=== PATIENT | male | born 1985 | race Caucasian/White ===

== ENCOUNTER 2020-05-07 11:20 | Emergency (ER) | payer BC, OTHER ==
[2020-05-08 12:28] LABS: SARS-CoV-2 MS2 Positive; SARS-CoV-2 N Gene Negative; SARS-CoV-2 S Gene Negative; SARS-CoV-2 by NAA Not Detected (NotDetected); SARS-CoV-2 orf1ab Negative
== END 2020-05-07 12:15 | disposition home or self-care (01) ==
LOC: MADERS 11:20
DX: Z20.828 Contact with and (suspected) exposure to other viral communicable diseases (principal); F90.9 Attention-deficit hyperactivity disorder, unspecified type; F17.210 Nicotine dependence, cigarettes, uncomplicated
CPT/HCPCS: 87635; 99283; U0003

== ENCOUNTER 2020-07-16 10:18 | Emergency (ER) | payer BC, OTHER ==
[2020-07-16] MEDS ORDERED: Sodium Chloride 0.9% 1,000 ML ONE (10:48)
[2020-07-16] MEDS ORDERED: Ondansetron PF 4 MG/2 ML Vial ONE (10:48)
[2020-07-16] MEDS ORDERED: Mag-Al Plus 1200 MG/1200 MG/120 MG/30 ML UDCUP ONE (10:49)
[2020-07-16] MEDS ORDERED: Lidocaine Viscous Sol 2% 15 ml UD Cup ONE (10:49)
[2020-07-16 11:10] LABS: #Basophils 0.1 thou/uL (0.0-0.2); #Eosinphils 0.1 thou/uL (0.0-0.7); #Lymphocytes 1.7 thou/uL (1.20-3.40); #Monocytes 0.4 thou/uL (0.11-0.59); #Neutrophils 6.2 thou/uL (1.40-6.50); %Basophils 0.8 % (0.0-1.0); %Eosinophils 1.5 % (0.0-10.0); %Monocytes 4.9 % (0.0-10.0); %Neutrophils 72.9 % (42.0-75.0); Hemoglobin 14.8 g/dL (14.0-18.0); Mean Corpuscular HGB CONC 32.2 g/dL (32.0-36.0); Mean Corpuscular Volume 86.8 fL (78.0-98.0); Mean Platelet Volume 6.4 fL (7.4-10.4); Platelet Count 312 thou/uL (130-400); RBC Distribution Width 11.5 % (11.5-14.5); Red Blood Cell (RBC) Count 5.29 mill/uL (4.70-6.10); White Blood Cell (WBC) Count 8.5 thou/uL (4.8-10.8)
[2020-07-16 11:25] LABS: ALT (SGPT) 21 U/L (8-55); AST (SGOT) 13 U/L (5-34); Albumin 4.3 g/dL (3.5-5.0); Alkaline Phosphatase 58 U/L (40-110); Anion Gap 15 mmol/L (10-20); BUN (Urea Nitrogen) 11 mg/dL (8.9-20.6); Bilirubin, Total 0.8 mg/dL (0.2-1.2); Calc. Creatinine Clearance 0 mL/min (70-130); Calcium 9.1 mg/dL (7.8-10.44); Carbon Dioxide 26 mmol/L (22-29); Chloride 104 mmol/L (98-107); Estimated GFR-MDRD 81; Glucose 108 mg/dL (70-105); Potassium 3.8 mmol/L (3.5-5.1); Protein, Total 7.3 g/dL (6.0-8.3); Sodium 141 mmol/L (136-145)
--- NOTE | 2020-07-16 12:35 | CT ---
CT ABDOMEN AND PELVIS WITH IV CONTRAST: Date: 07/16/2020 HISTORY: 35-year-old male with left lower quadrant pain and blood in the stool. COMPARISON: 08/02/2014. FINDINGS: The lung bases are clear. The liver, spleen, pancreas, adrenal glands, and kidneys are normal. The gallbladder is contracted. N o free air, free fluid, or lymphadenopathy seen in the abdomen or pelvis. The small bowel loops are not abnormally dilated. A normal appearing appendix is present. There is mi ld colonic diverticulosis without pericolonic inflammatory changes to suggest diverticulitis. No abno rmally loculated fluid collection is seen to suggest abscess formation. The urinary bladder is well d istended and normal. Osseous structures are grossly unremarkable. IMPRESSION: No evidence of acute process. POS: [facility]
[2020-07-16] MEDS ORDERED: Iopamidol 370 76% 100 ML VIAL ONE (12:51)
== END 2020-07-16 13:08 | disposition home or self-care (01) ==
LOC: MADERS 10:18
DX: K92.2 Gastrointestinal hemorrhage, unspecified (principal); F17.210 Nicotine dependence, cigarettes, uncomplicated
CPT/HCPCS: 74177; 80053; 85025; 96361; 96374; 99406; J2405; J7050; Q9967

== ENCOUNTER 2021-11-11 11:55 | Emergency (ER) | payer BC ==
[~2021-11-11 11:55] MED LIST: Sodium Chloride 0.9% 1,000 ML BAG ONE
[2021-11-11] MEDS ORDERED: Iopamidol 370 76% 100 ML VIAL ONE (12:22)
[2021-11-11] MEDS ORDERED: Ketorolac Tromethamine 30 MG/ML VIAL ONE (12:38)
[2021-11-11] MEDS ORDERED: Sodium Chloride 0.9% 1,000 ML ONE (12:38)
[2021-11-11] MEDS ORDERED: Ondansetron PF 4 MG/2 ML Vial ONE (12:38)
[2021-11-11 12:54] LABS: #Eosinphils 0.4 thou/uL (0.0-0.7); #Lymphocytes 0.6 thou/uL (1.20-3.40); #Monocytes 0.5 thou/uL (0.11-0.59); #Neutrophils 11.6 thou/uL (1.40-6.50); %Basophils 0.3 % (0.0-1.0); %Eosinophils 2.9 % (0.0-10.0); %Lymphocytes 4.3 % (21.0-51.0); %Monocytes 3.9 % (0.0-10.0); %Neutrophils 88.6 % (42.0-75.0); Mean Corpuscular HGB CONC 32.4 g/dL (32.0-36.0); Mean Corpuscular Hemoglobin 28.5 pg (27.0-31.0); Mean Corpuscular Volume 88.1 fL (78.0-98.0); Platelet Count 309 thou/uL (130-400); RBC Distribution Width 11.8 % (11.5-14.5); Red Blood Cell (RBC) Count 5.28 mill/uL (4.70-6.10); White Blood Cell (WBC) Count 13.1 thou/uL (4.8-10.8)
[2021-11-11 13:07] LABS: ALT (SGPT) 33 U/L (8-55); AST (SGOT) 25 U/L (5-34); Albumin 4.1 g/dL (3.5-5.0); Alkaline Phosphatase 50 U/L (40-110); Anion Gap 12 mmol/L (10-20); BUN (Urea Nitrogen) 13 mg/dL (8.9-20.6); Bilirubin, Total 1.4 mg/dL (0.2-1.2); Calc. Creatinine Clearance 0 mL/min (70-130); Calcium 8.9 mg/dL (7.8-10.44); Carbon Dioxide 27 mmol/L (22-29); Chloride 105 mmol/L (98-107); Globulin 3.1 g/dL (2.4-3.5); Glucose 108 mg/dL (70-105); Lipase 19 U/L (8-78); Magnesium 1.7 mg/dL (1.6-2.6); Potassium 3.8 mmol/L (3.5-5.1); Protein, Total 7.2 g/dL (6.0-8.3); Sodium 140 mmol/L (136-145)
[2021-11-11 14:45] LABS: Bilirubin Negative (Negative); Blood, Urine Negative (Negative); Clarity Clear (Clear); Glucose, Urine (Dipstick) Negative (Negative); Ketone, Urine Negative (Negative); Leukocyte Negative (Negative); Nitrite Negative (Negative); Protein, Urine (Dipstick) 30 mg/dL (Neg-Trace); Urobilinogen 0.2 mg/dL (Less than 2)
[2021-11-11 14:46] LABS: pH, Urine Greater/Equal 9.0 (5.0-9.0)
[2021-11-11 14:51] LABS: Bacteria/HPF Rare-Few HPF (None Seen); RBC/HPF 0-3 HPF (0-3); Squamous Epithelial 0-3 HPF (0-3)
== END 2021-11-11 15:20 | disposition home or self-care (01) ==
LOC: MADERS 11:55
DX: R10.30 Lower abdominal pain, unspecified (principal); R11.2 Nausea with vomiting, unspecified; F17.210 Nicotine dependence, cigarettes, uncomplicated
CPT/HCPCS: 74177; 80053; 81003; 81015; 83690; 83735; 85025; 96374; 96375; J1885; J2405; J7050; Q9967

== ENCOUNTER 2022-11-02 13:11 | Emergency (ER) | payer BC ==
[2022-11-02] MEDS ORDERED: Morphine 4 MG/ML VIAL ONE (13:47)
[2022-11-02] MEDS ORDERED: Ondansetron PF 4 MG/2 ML Vial ONE (13:48)
[2022-11-02] MEDS ORDERED: Sodium Chloride 0.9% 1,000 ML ONE (13:48)
[2022-11-02 13:59] LABS: #Basophils 0.1 thou/uL (0.0-0.2); #Eosinphils 0.2 thou/uL (0.0-0.7); Platelet Count 231 10x3/uL (130-400)
[2022-11-02 14:17] LABS: ALT (SGPT) 21 U/L (8-55); AST (SGOT) 16 U/L (5-34); Albumin 4.2 g/dL (3.5-5.0); Alkaline Phosphatase 52 U/L (40-110); Anion Gap 13 mmol/L (10-20); BUN (Urea Nitrogen) 11 mg/dL (8.9-20.6); Bilirubin, Total 0.9 mg/dL (0.2-1.2); Calc. Creatinine Clearance 0 mL/min (70-130); Calcium 9.3 mg/dL (7.8-10.44); Carbon Dioxide 23 mmol/L (22-29); Chloride 102 mmol/L (98-107); Estimated GFR 96; Globulin 2.9 g/dL (2.4-3.5); Glucose 96 mg/dL (70-105); Lipase 23 U/L (8-78); Magnesium 1.8 mg/dL (1.6-2.6); Potassium 4.1 mmol/L (3.5-5.1); Protein, Total 7.1 g/dL (6.0-8.3); Sodium 134 mmol/L (136-145)
[2022-11-02 14:18] LABS: Acetaminophen Less than 10.0 mcg/mL (10.0-30.0); Alcohol Less than 10 mg/dL (Less than 10); Salicylate Less than 8.0 mg/dL (15.0-30.0)
[2022-11-02 14:42] LABS: #Lymphocytes 0.3 thou/uL (1.20-3.40); #Monocytes 0.7 thou/uL (0.11-0.59); #Neutrophils 6.2 thou/uL (1.40-6.50); %Basophils 0.7 % (0.0-1.0); %Eosinophils 2.3 % (0.0-10.0); %Lymphocytes 4.3 % (21.0-51.0); %Neutrophils 83.7 % (42.0-75.0); Hemoglobin 14.1 g/dL (14.0-18.0); Mean Corpuscular HGB CONC 34.6 g/dL (32.0-36.0); Mean Corpuscular Hemoglobin 30.1 pg (27.0-31.0); Mean Corpuscular Volume 86.9 fl (78.0-98.0); Mean Platelet Volume 6.7 fL (7.4-10.4); RBC Distribution Width 10.9 % (11.5-14.5); Red Blood Cell (RBC) Count 4.67 mill/uL (4.70-6.10); White Blood Cell (WBC) Count 7.5 10x3/uL (4.8-10.8)
[2022-11-02] MEDS ORDERED: Ketorolac Tromethamine 30 MG/ML VIAL ONE (15:35)
[2022-11-02 16:04] LABS: Bilirubin Negative (Negative); Blood, Urine Negative (Negative); Clarity Clear (Clear); Glucose, Urine (Dipstick) Negative (Negative); Ketone, Urine Negative (Negative); Leukocyte Negative (Negative); Nitrite Negative (Negative); Protein, Urine (Dipstick) Negative (Neg-Trace); Urobilinogen 0.2 mg/dL (Less than 2)
[2022-11-02 16:08] LABS: THC/Cannabinoid Screen Detected (NotDetected)
[2022-11-02 16:09] LABS: Amphetamine Detected (NotDetected); Barbiturates Screen Not Detected (NotDetected); Benzodiazepine Screen Not Detected (NotDetected); Cocaine Metabolite Screen Not Detected (NotDetected); Medtox Control Line Valid? VALID (VALID); Methadone Not Detected (NotDetected); Methamphetamine Detected (NotDetected); Opiate Screen Detected (NotDetected); Oxycodone Screen Not Detected (NotDetected); Phencyclidine (PCP) Not Detected (NotDetected); Tricyclic Screen Not Detected (NotDetected)
== END 2022-11-02 16:58 | disposition home or self-care (01) ==
LOC: MADERS 13:11
DX: R10.13 Epigastric pain (principal); F15.10 Other stimulant abuse, uncomplicated; F17.210 Nicotine dependence, cigarettes, uncomplicated
CPT/HCPCS: 74177; 80053; 80306; 80307; 81003; 83605; 83690; 83735; 83880; 85025; 93005; 96361; 96374; 96375; J1885; J2270; J2405; J7050